=== PATIENT | female | born 1980 | race American Indian/Alaskan Native ===

== ENCOUNTER 2016-10-11 11:32 | Emergency (ER) | payer SELFPAY ==
[2016-10-11 11:58] VITALS: BP 137/81
[2016-10-11] MEDS ORDERED: TORADOL IM ONE (16:20)
--- NOTE | 2016-10-11 16:36 | Emergency Department Report ---
HPI - General Chief Complaint: Extremity Injury, Lower Time Seen by Provider: 10/11/16 16:17 - HPI HPI: 36-year-old female with a history of rheumatoid arthritis presents to ED complaining of right knee pain 2 weeks. [facility]. Patient states his pain is gone progressively worse. Patient describes been as throbbing in nature and nonradiating, 6 out of 10 in intensity. Patient states he has gotten a bit swollen. Patient states she is not on any medication for rheumatoid arthritis. Patient is unable to recall the medication she was taking in the past for it. Patient denies any injury or trauma to the knee. Patient denies fever/chills/nausea/vomiting/abdominal pain/chest pain/dizziness/ problems. ED Past Medical Hx - Past Medical History Previous Medical History?: Yes Hx Arthritis: Yes - Surgical History Past Surgical History?: No - Social History Smoking Status: Current Every Day Smoker Substance Use Type: Alcohol - Medications Home Medications: Home Medications Medication Instructions Recorded Confirmed Last Taken Type Cyclobenzaprine [Flexeril] 10 mg PO 20 #30 tablet 10/11/16 Unknown Rx Ibuprofen [Motrin 800 MG tab] 800 mg PO Q8HR PRN #30 tablet 10/11/16 Unknown Rx traMADol [Ultram 50 MG tab] 50 mg PO Q6HR PRN #20 tablet 10/11/16 Unknown Rx ED Review of Systems ROS: Stated complaint: RT LEG SWELLING Other details as noted in HPI Constitutional: denies: chills, fever Eyes: denies: eye pain, eye discharge, vision change ENT: denies: ear pain, throat pain Respiratory: denies: cough, shortness of breath, wheezing Cardiovascular: denies: chest pain, palpitations Endocrine: no symptoms reported Gastrointestinal: denies: abdominal pain, nausea, vomiting, diarrhea, constipation, hematemesis, hematochezia Genitourinary: denies: urgency, dysuria, frequency, hematuria, discharge, abnormal menses Musculoskeletal: arthralgia. denies: back pain, joint swelling, myalgia Skin: denies: rash, lesions, pruritus Neurological: denies: headache, weakness, numbness, paresthesias, confusion, abnormal gait Psychiatric: denies: anxiety, depression, suicidal thoughts Hematological/Lymphatic: denies: easy bleeding, easy bruising Physical Exam - Physical Exam Vital Signs: Vital Signs 10/11/16 11:56 Temperature 97.4 F L Pulse Rate 64 Respiratory 16 Rate Blood Pressure 137/81 O2 Sat by Pulse 100 Oximetry Physical Exam: GENERAL: Alert and oriented x3, no apparent distress, Normal Gait, atraumatic. HEAD: Head is normocephalic and a-traumatic. EYES: Extra ocular muscles are intact. Pupils are equal, round, and reactive to light and accommodation. NECK: Supple. Non edematous, No carotid bruits. No lymphadenopathy or thyromegaly. LUNGS: Symetrical with respiration, No wheezing, no rales or crackles, CTAB. HEART: S1, S2 present, regular rate and rhythm without murmur, no rubs, no gallops. ABDOMEN: No organomegaly was noted,Positive bowel sounds, soft, and non- distended. . Nontender to palpation on all Quadrants, NO CVA tenderness. EXTREMITIES/MUSCULOSKELETAL: No cyanosis, clubbing, rash, lesions or edema. Full ROM bilaterally. UE/LE Pulses 2+ bilaterally. LE and UE 5+ strength bilaterally. Full range of motion on right knee. Patient able to extend and flex knee without difficulty. Right knee non erythematous. Mild edema. Warm to touch. Nontender to palpation. NEUROLOGIC: No focal Deficit, Cranial nerves II through XII are grossly intact. No loss of sensation, . PSYCHIATRIC: Mood is congruent with affect, denies suicidal or homicidal ideations. SKIN: Warm and dry, No lesions, No ulceration or induration present. ED Course Vital Signs 10/11/16 11:56 Temperature 97.4 F L Pulse Rate 64 Respiratory 16 Rate Blood Pressure 137/81 O2 Sat by Pulse 100 Oximetry ED Medical Decision Making - Medical Decision Making 36-year-old female presented with arthritic knee pain. ED course: Patient received 60 mg of Toradol IM. Knee joints intact no tenderness to palpation. Vital signs stable patient is in no acute progress or distress. Discussed the patient to follow up her primary care physician as referred. Patient reports feeling a bit better prior to discharge. Patient understands all discussed since complaints of follow-up. Primary care physician. Discussed the patient's symptoms worsen or new symptoms or to return to ED. Critical care attestation.: If time is entered above; I have spent that time in minutes in the direct care of this critically ill patient, excluding procedure time. ED Disposition Clinical Impression: Arthritis Knee pain, right Qualifiers: Chronicity: chronic Qualified Code(s): M25.561 - Pain in right knee; G89.29 - Other chronic pain Disposition: DISCHARGED TO HOME OR SELFCARE Is pt being admited?: No Does the pt Need Aspirin: No Condition: Stable Instructions: Arthralgia (ED), Rheumatoid Arthritis (ED), Knee Pain (ED), Knee Exercises (GEN) Prescriptions: Cyclobenzaprine [Flexeril] 10 mg PO 20 #30 tablet Ibuprofen [Motrin 800 MG tab] 800 mg PO Q8HR PRN #30 tablet PRN Reason: Pain traMADol [Ultram 50 MG tab] 50 mg PO Q6HR PRN #20 tablet PRN Reason: Pain Referrals: PRIMARY CARE, [Primary Care Provider] - 3-5 Days [facility] [Outside] - [facility] - [facility] [Outside] - 3-5 Days [facility] [Outside] - 3-5 Days [facility] [Outside] - 3-5 Days Forms: Work/School Release Form(ED) Time of Disposition: 16:57
== END 2016-10-11 17:18 | disposition home or self-care (01) ==
LOC: ED 11:32
DX: M17.11 Unilateral primary osteoarthritis, right knee (principal); F17.200 Nicotine dependence, unspecified, uncomplicated
CPT/HCPCS: 96372; 99281; J1885

== ENCOUNTER 2016-11-01 23:10 | Emergency (ER) | payer SELFPAY ==
[2016-11-02] MEDS ORDERED: MOTRIN PO ONE (01:20)
[2016-11-02 02:39] LABS: Hematocrit 39.4 % (30.3-42.9); Mean Corpuscular HGB Conc 33 % (30-34); Mean Corpuscular Hemoglobin 31 pg (28-32); Mean Corpuscular Volume 95 fl (79-97); Platelet Count 290 K/mm3 (140-440); Red Blood Count 4.15 M/mm3 (3.65-5.03); Red Cell Distribution Width 14.2 % (13.2-15.2); White Blood Count 6.9 K/mm3 (4.5-11.0)
[2016-11-02 02:52] LABS: Anion Gap 20 mmol/L; Blood Urea Nitrogen 14 mg/dL (7-17); Calcium 8.5 mg/dL (8.4-10.2); Carbon Dioxide 20 mmol/L (22-30); Chloride 103.2 mmol/L (98-107); Glucose 71 mg/dL (65-100); Potassium 3.8 mmol/L (3.6-5.0); Sodium 139 mmol/L (137-145)
[2016-11-02 02:54] LABS: Uric Acid 4.3 mg/dL (3.5-7.6)
[2016-11-02] MEDS ORDERED: NORCO 5/325 PO ONE (08:52)
--- NOTE | 2016-11-02 08:57 | Emergency Department Report ---
ED Extremity Problem HPI - General Chief complaint: Extremity Injury, Lower Stated complaint: LEG SWELLING Time Seen by Provider: 11/02/16 08:48 Source: patient Mode of arrival: Ambulatory Limitations: No Limitations - History of Present Illness Initial comments: 36-year-old female presents to the emergency department complaining of pain and swelling of her right leg. Patient reports symptoms have been present for approximately 2 months. Symptoms are worse with weightbearing and ambulation. Patient states she has seen her primary care physician and was diagnosed with gout. She states she was prescribed some pain medication, but this is not helping. She denies chest pain or difficulty breathing. There has been no syncope. There are no other complaints. MD Complaint: extremity pain, extremity swelling -: Gradual, month(s) (2) Location: right, lower extremity History of Same: No Severity scale (0 -10): 6 Quality: aching Consistency: constant Improves with: nothing Worsens with: weight bearing, walking Associated Symptoms: denies other symptoms - Related Data Previous Rx's Medication Instructions Recorded Last Taken Type Cyclobenzaprine [Flexeril] 10 mg PO 20 #30 tablet 10/11/16 Unknown Rx Ibuprofen [Motrin 800 MG tab] 800 mg PO Q8HR PRN #30 tablet 10/11/16 Unknown Rx traMADol [Ultram 50 MG tab] 50 mg PO Q6HR PRN #20 tablet 10/11/16 Unknown Rx HYDROcodone/APAP 5-325 [[place] 1 each PO Q6HR PRN #20 tablet 11/02/16 Unknown Rx 5/325] Prednisone [predniSONE 10 mg 10 mg PO .TAPER #1 tab.ds.pk 11/02/16 Unknown Rx (6-Day Pack, 21 Tabs)] Allergies Allergy/AdvReac Type Severity Reaction Status Date / Time Penicillins AdvReac Rash Verified 10/11/16 12:00 ED Review of Systems ROS: Stated complaint: LEG SWELLING Other details as noted in HPI Comment: All other systems reviewed and negative Musculoskeletal: as per HPI (right leg pain and swelling) ED Past Medical Hx - Past Medical History Previous Medical History?: Yes Hx Arthritis: Yes (recently diagnosed with gout) - Surgical History Past Surgical History?: No - Family History Family history: no significant - Social History Smoking Status: Never Smoker - Medications Home Medications: Home Medications Medication Instructions Recorded Confirmed Last Taken Type Cyclobenzaprine [Flexeril] 10 mg PO 20 #30 tablet 10/11/16 Unknown Rx Ibuprofen [Motrin 800 MG tab] 800 mg PO Q8HR PRN #30 tablet 10/11/16 Unknown Rx traMADol [Ultram 50 MG tab] 50 mg PO Q6HR PRN #20 tablet 10/11/16 Unknown Rx HYDROcodone/APAP 5-325 [[place] 1 each PO Q6HR PRN #20 tablet 11/02/16 Unknown Rx 5/325] Prednisone [predniSONE 10 mg 10 mg PO .TAPER #1 tab.ds.pk 11/02/16 Unknown Rx (6-Day Pack, 21 Tabs)] ED Physical Exam - General Limitations: No Limitations General appearance: alert, in no apparent distress - Head Head exam: Present: atraumatic, normocephalic - Eye Eye exam: Present: normal appearance, PERRL, EOMI - ENT ENT exam: Present: normal exam, normal orophraynx, mucous membranes moist - Neck Neck exam: Present: normal inspection, full ROM. Absent: tenderness - Respiratory Respiratory exam: Present: normal lung sounds bilaterally. Absent: respiratory distress - Cardiovascular Cardiovascular Exam: Present: regular rate, normal rhythm, normal heart sounds - GI/Abdominal GI/Abdominal exam: Present: soft, normal bowel sounds. Absent: distended, tenderness - Extremities Exam Extremities exam: Present: full ROM, other (Moderate edema noted to right lower extremity. Mild tenderness to palpation of the lower extremity. Extremity is warm to touch. No palpable cord noted. Remainder of extremities are unremarkable.) - Back Exam Back exam: Present: normal inspection, full ROM. Absent: tenderness - Neurological Exam Neurological exam: Present: alert, oriented X3. Absent: motor sensory deficit - Skin Skin exam: Present: warm, dry, intact ED Course Vital Signs 11/02/16 11/02/16 11/02/16 01:03 01:23 02:23 Temperature 97.8 F Pulse Rate 59 L Respiratory 18 20 20 Rate Blood Pressure 132/83 Blood Pressure [Right] O2 Sat by Pulse 100 Oximetry 11/02/16 11/02/16 07:32 09:30 Temperature 97.9 F Pulse Rate 60 60 Respiratory 14 16 Rate Blood Pressure Blood Pressure 128/47 117/57 [Right] O2 Sat by Pulse 100 100 Oximetry ED Medical Decision Making - Lab Data Result diagrams: 11/02/16 02:07 11/02/16 02:07 - Radiology Data Radiology results: report reviewed Doppler ultrasound of the right lower extremity reveals no evidence of DVT. - Medical Decision Making Lab and imaging results reviewed and discussed with the patient. Patient will be discharged home at this time to follow up with her primary care physician. - Differential Diagnosis DVT, gout Critical care attestation.: If time is entered above; I have spent that time in minutes in the direct care of this critically ill patient, excluding procedure time. ED Disposition Clinical Impression: Right leg pain Disposition: DISCHARGED TO HOME OR SELFCARE Is pt being admited?: No Condition: Stable Instructions: Acute Gouty Arthritis (ED) Prescriptions: HYDROcodone/APAP 5-325 [[place] 5/325] 1 each PO Q6HR PRN #20 tablet PRN Reason: Pain Prednisone [predniSONE 10 mg (6-Day Pack, 21 Tabs)] 10 mg PO .TAPER #1 tab.[id number] Referrals: PRIMARY CARE, [Primary Care Provider] - 3-5 Days Time of Disposition: 10:48
[2016-11-02 09:40] VITALS: BP 117/57
== END 2016-11-02 10:55 | disposition home or self-care (01) ==
LOC: ED 23:10
DX: M79.604 Pain in right leg (principal); M19.90 Unspecified osteoarthritis, unspecified site; Z88.0 Allergy status to penicillin
CPT/HCPCS: 36415; 80048; 84550; 85027; 99283

== ENCOUNTER 2017-06-16 13:45 | Emergency (ER) | payer SELFPAY ==
[2017-06-16 13:55] VITALS: BP 131/82
[2017-06-16] MEDS ORDERED: TYLENOL #3 PO ONE (17:02)
--- NOTE | 2017-06-16 17:13 | Emergency Department Report ---
HPI - General Chief Complaint: Dental/Oral Time Seen by Provider: 06/16/17 16:39 - HPI HPI: The patient is a 37-year-old ffmale who presents to ED complaining of 7/10 pain in the right side of his mouth x 5 days . Patient states that the pain started 3 days ago and has increased in severity over the last 2days. Patient states that it radiates towards ear. Patient describes a as a throbbing , pressure-like sensation. Patient states otherwise well and has no other complaints. Patient also complains of her arthritis and joint pain of her left knee. Patient states she was diagnosed with arthritis in 2008 Patient has had no fevers and no chills. No chest pain, no shortness of breath. No abdominal pain. No shortness of breath or recent trauma to the face. ED Past Medical Hx - Past Medical History Hx Arthritis: Yes (recently diagnosed with gout) - Social History Smoking Status: Current Every Day Smoker Substance Use Type: None - Medications Home Medications: Home Medications Medication Instructions Recorded Confirmed Last Taken Type traMADol [Ultram 50 MG tab] 50 mg PO Q6HR PRN #20 tablet 10/11/16 Unknown Rx HYDROcodone/APAP 5-325 [[place] 1 each PO Q6HR PRN #20 tablet 11/02/16 Unknown Rx 5/325] Prednisone [predniSONE 10 mg 10 mg PO .TAPER #1 tab.ds.pk 11/02/16 Unknown Rx (6-Day Pack, 21 Tabs)] Acetaminophen/Codeine [Tylenol 1 tab PO Q6H #10 tablet 06/16/17 Unknown Rx /Codeine # 3 tab] Clindamycin [Clindamycin CAP] 300 mg PO BID 10 Days capsule 06/16/17 Unknown Rx Cyclobenzaprine [Flexeril 10 MG 10 mg PO 20 #30 tablet 06/16/17 Unknown Rx TAB] Ibuprofen [Motrin 800 MG tab] 800 mg PO Q8HR PRN #30 tablet 06/16/17 Unknown Rx ED Review of Systems ROS: Stated complaint: MOUTH PAIN Other details as noted in HPI Constitutional: denies: chills, fever Eyes: denies: eye pain, eye discharge, vision change ENT: denies: ear pain, throat pain Respiratory: denies: cough, shortness of breath, wheezing Cardiovascular: denies: chest pain, palpitations Endocrine: no symptoms reported Gastrointestinal: denies: abdominal pain, nausea, diarrhea Genitourinary: denies: urgency, dysuria, frequency, hematuria, discharge Musculoskeletal: denies: back pain, joint swelling, arthralgia Skin: denies: rash, lesions Neurological: denies: headache, weakness, paresthesias Psychiatric: denies: anxiety, depression Hematological/Lymphatic: denies: easy bleeding, easy bruising Physical Exam - Physical Exam Vital Signs: Vital Signs 06/16/17 13:52 Temperature 98.2 F Pulse Rate 57 L Respiratory 20 Rate Blood Pressure 131/82 O2 Sat by Pulse 99 Oximetry Physical Exam: GENERAL: Alert and oriented x3, no apparent distress, Normal Gait, atraumatic. EARS: symetrical, atraumatic, non tender, ear canal clear and moderate cerumen, tympanic membrance non inflamed. gross auditory nml bilaterally. MOUTH:Mouth is well hydrated and without lesions. Tonsils nonerythematous or swollen, tooth number 12,13, 14 missing, gum tender to palpation at the site of these teeth. No gingival enlargement, no bleeding, no drainage NECK: Supple. Non edematous, No lymphadenopathy or thyromegaly. LUNGS: Symetrical with respiration, No wheezing, no rales or crackles, CTAB. HEART: S1, S2 present, regular rate and rhythm without murmur, no rubs, no gallops. Non tender to palpation EXTREMITIES/MUSCULOSKELETAL: No cyanosis, clubbing, rash, lesions or edema. Full ROM bilaterally. No edema in knee and all other joints, non-erythematous, no calf pain NEUROLOGIC: The patient is cooperative with no focal neurologic deficits. Normal speech. Normal sensation in bilateral upper and lower extremities, No loss of sensation, SKIN: Warm and dry, No lesions, No ulceration or induration present. ED Course Vital Signs 06/16/17 13:52 Temperature 98.2 F Pulse Rate 57 L Respiratory 20 Rate Blood Pressure 131/82 O2 Sat by Pulse 99 Oximetry ED Medical Decision Making - Medical Decision Making 37-year-old female who presents with left-sided Facial pain secondary to odontogenic caries ED course: Patient received 450 mg of clindamycin, 2 tablets of Tylenol No. 3. Odontogenic infection versus ear infection. Based upon history and physical examination, pain is a result of an infection of tooth numbers 12-14 and that the pain Pt feels on the left side of his face and towards the ear is referred pain from this infectious process. Pt has no evidence of acute impending airway compromise. At this point, patient will be discharged home on some antibiotics and pain trial, she will do well with an outpatient course of antibiotics. Follow up with the Dental Clinic as referred Vital signs are normal patient is in no acute distress. Pt had an effect uneventful ED stay. Discussed the patient also follow-up with primary care physician for continued management over the arthritis Critical care attestation.: If time is entered above; I have spent that time in minutes in the direct care of this critically ill patient, excluding procedure time. ED Disposition Clinical Impression: Dental caries Arthralgia Qualifiers: Joint pain location: knee Laterality: left Qualified Code(s): M25.562 - Pain in left knee Disposition: TO HOME OR SELFCARE Is pt being admited?: No Does the pt Need Aspirin: No Condition: Stable Instructions: Dental Caries (ED), Arthralgia (ED), Toothache (ED), Knee Exercises (GEN) Additional Instructions: Follow-up as discussed. If any worsening symptoms does return to ED. Prescriptions: Acetaminophen/Codeine [Tylenol /Codeine # 3 tab] 1 tab PO Q6H #10 tablet Clindamycin [Clindamycin CAP] 300 mg PO BID 10 Days capsule Cyclobenzaprine [Flexeril 10 MG TAB] 10 mg PO 20 #30 tablet Ibuprofen [Motrin 800 MG tab] 800 mg PO Q8HR PRN #30 tablet PRN Reason: Pain Referrals: PRIMARY CARE, [Primary Care Provider] - 3-5 Days [facility] [Outside] - 3-5 Days [facility] [Outside] - 3-5 Days [facility] [Outside] - 3-5 Days [facility] [Outside] - 3-5 Days Forms: Accompanied Note, Work/School Release Form(ED) Time of Disposition: 17:20
[2017-06-16] MEDS ORDERED: CLEOCIN PO ONE (18:00)
== END 2017-06-16 18:16 | disposition home or self-care (01) ==
LOC: ED 13:45
DX: K02.9 Dental caries, unspecified (principal); M25.562 Pain in left knee; F17.200 Nicotine dependence, unspecified, uncomplicated; M10.9 Gout, unspecified; Z88.0 Allergy status to penicillin
CPT/HCPCS: 99282